=== PATIENT | female | born 1960 | race Caucasian/White ===

== ENCOUNTER 2021-07-09 16:57 | Outpatient (CLI) | payer BC, SELFPAY ==
--- NOTE | 2021-07-09 13:30 | EMB_PTH ---
PATIENT: OBED COPELAND LOC: [facility] U#:[id number] AGE/SX: 61/F ROOM: RE07/09/[address]: Dr. Vidal Rawls MD : 1960 BED: DIS: 07/09/2021 SPEC #: [id number] RECD: 07/09/21 17:18 STATUS: GABE NEYMAR #: [id number] AFIA: 07/09/21 13:[address]: Vidal Rawls DEPT: SURGICAL PATHOLOGY RECD BY: Mariah Crenshaw Tissues: Endometrium, NOS Procedures: Surgery Specimen Level IV HEADER OPERATION: Endometrial biopsy PRE-OP DIAGNOSIS: N95.0 TISSUE SUBMITTED: Endometrial biopsy MICROSCOPIC DIAGNOSIS Endometrial biopsy: Proliferative endometrium. ELGIN:moo 07/11/2021 COMMENT Case has been reviewed in consultation with Dr. Clemons who concurs with the above diagnosis. IDC:AM MICROSCOPIC DESCRIPTION Slides are reviewed. GROSS DESCRIPTION Received in fixative is one container labeled with the patient's name and designated endometrial biopsy. The specimen consists of multiple irregular fragments of pink-red soft tissue that in aggregate measure 2 x 1.5 x 0.1 cm. The specimen is totally submitted in one cassette. / ELGIN:moo 07/10/2021 TC:3 CPT: 89148
[2021-07-18 15:52] LABS: HPV Reflexed? NOT INDICATED
== END 2021-07-09 23:59 | disposition home or self-care (01) ==
PROVIDERS: Visit Provider Obstetrics & Gynecology
DX: Z12.4 Encounter for screening for malignant neoplasm of cervix (principal); N95.0 Postmenopausal bleeding
CPT/HCPCS: 88175; 88305; G0145